=== PATIENT | male | born 1965 | race Hispanic/Latino ===

== ENCOUNTER → 2020-03-19 | Outpatient (CLI) | payer BC ==
[~2020-03-19] VITALS: Ht 182.9 cm; Wt 114.8 kg
[~2020-03-19] MED LIST: REGADENOSON 0.4 MG/5 ML PF SYG IVP SCH
[2020-03-19] MEDS: REGADENOSON 0.4 MG/5 ML PF SYG IVP SCH (12:57)
== END | disposition home or self-care (01) ==
LOC: SHCH 08:22
PROVIDERS: ATTEND Internal Medicine
DX: R07.9 Chest pain, unspecified (principal)
CPT/HCPCS: 78452; 93017; 96374; A9500 ×2; J2785